=== PATIENT | male | born 1975 | race African-American/Black ===

== ENCOUNTER 2017-04-11 12:30 | Emergency (ER) | payer OTHER ==
[~2017-04-11] VITALS: Ht 172.7 cm; Wt 90.0 kg
[2017-04-11 12:35] VITALS: TEMP 37.2; Ht 172.7 cm; Wt 90.0 kg
[2017-04-11] MEDS ORDERED: LIDOCAINE/EPINEPHRINE 1% 20 ML VIAL INFIL ONE (13:00)
[2017-04-11] MEDS ORDERED: CEPH500C PO (13:18)
[2017-04-11] MEDS ORDERED: SULF800T23 PO (13:18)
--- NOTE | 2017-04-11 13:21 | EMERGENCY ROOM VISIT NOTE ---
ED Visit Note First contact with patient: 12:42 CHIEF COMPLAINT: Swelling, pain, and drainage from the left armpit HISTORY OF PRESENT ILLNESS: This 41-year-old male patient presents to the emergency department, ambulatory, approximately one week after they noticed a hard, red, tender area in the left armpit. It is slowly getting larger, more painful and tender. No fever, chills, or loss of appetite. There has been and able drainage from the area. The patient has been using the area to express drainage, and has not been very successful. There was no injury to the area preceding the infection. They rate the pain as severe and 10/10. Tetanus shot is up to date. They have tried expressing the pus without relief. The patient is not diabetic. The patient has no history of subcutaneous abscesses. REVIEW OF SYSTEMS: A 10 system review of systems was performed with positives and pertinent negatives listed in the history of present illness. All other systems were reviewed and are negative. ALLERGIES: None MEDICATIONS: None PMH: None SOCIAL HISTORY: Is lives locally with family. He denies drug, alcohol, tobacco use. PHYSICAL EXAM: Vital Signs: Reviewed Nurse's notes, vital signs stable. GENERAL : This is a 41 year old black male, no acute distress, non toxic in appearance, well-developed well-nourished. SKIN: There is an erythematous indurated area in the anterior left axilla which measures about 3 cm in diameter with induration radiating superiorly approximately 4 cm. It is fluctuant with pointing and limited drainage. There is a zone of inflammation around it but no lymphangitis. Capillary refill less than 2 seconds. MUSCULOSKELETAL: There is no limitation of the range of motion of the right arm. EMERGENCY DEPARTMENT COURSE: I examined the patient. Verbal consent was obtained to perform the procedure. After saline and Betadine cleansing and 3 mL of 1% lidocaine with epinephrine anesthesia, the abscess was incised with a number 11 scalpel blade. A small amount of serous and very small amount of purulent material was released with more expressed by pressure. A swab was obtained for culture. The abscess cavity was further probed with a needle bobtail driver, but due to the location, unable to express the deep pocket. The abscess cavity was then copiously irrigated with sterile saline under pressure. The area was then packed with bacitracin soaked packing. The area was cleaned with sterile saline and dressed with bacitracin and a bulky bandage. The patient tolerated the procedure well. I did stress the need for the patient to follow up outpatient with surgery for further evaluation and possible surgical removal of the abscess. The patient verbalizes understanding of these instructions. The patient was discharged home in stable condition. I attest that I have personally reviewed the patient's current medication list. Patient was found to have normal blood pressure on screening and does not require follow-up. DIFFERENTIAL DIAGNOSIS: Abscess, cellulitis, lymphangitis, folliculitis, malignancy, and others DIAGNOSIS: Abscess of the left axilla Current/Historical Medications Scheduled Cephalexin Monohydrate (Keflex), 500 MG PO QID Sulfa/Trimethoprim (Bactrim Ds 800MG/160MG), 1 TAB PO BID Vital Signs Date Time Temp Pulse Resp B/P (MAP) Pulse Ox O2 Delivery O2 Flow Rate FiO2 04/11/17 12:35 37.2 80 20 120/75 95 Room Air Departure Information Impression Primary Impression: Abscess of left axilla Dispostion Home / Self-Care Condition GOOD Prescriptions Sulfa/Trimethoprim (Bactrim Ds 800MG/160MG) Tab 1 TAB PO BID for 10 Days, #20 TAB Prov: Sary Quintero PA-C 04/11/17 Cephalexin Monohydrate (Keflex) 500 Mg Cap 500 MG PO QID for 10 Days, #40 CAP Prov: Sary Quintero PA-C 04/11/17 Referrals No Doctor, Assigned (PCP) Ángel Santana M.D. Patient Instructions ED Abscess IandD, My [facility] Additional Instructions You seen in the emergency department today for an abscess in the left axilla. This was drained, however due to the location, I did not feel comfortable expressing the deep pocket. Very minimal purulent fluid, but mostly serous drainage was obtained. The open wound was packed, but do encourage you to follow up with surgeon in the case that you need deeper I&D. Please keep the packing in place. Do not get the wound wet. Follow-up with the surgeon in 48 hours for recheck and further evaluation. As discussed, if the surgeon is unable to see you in this timeframe, return to the emergency department for recheck. A culture was sent to the lab for testing. These results will be available in approximately 48 hours. You were prescribed Keflex and Bactrim to be taken as prescribed. This is an antibiotic. All antibiotics have the potential to cause diarrhea. Stop this medication and contact a medical provider if you were to develop any significant adverse side effects including: wheezing, shortness of breath, passing out, vomiting, or a diffuse rash. Always take antibiotics as directed and COMPLETE the ENTIRE course regardless of the improvement of your symptoms. Return to the emergency department for worsening redness, purulent drainage, fever, chills, nausea, vomiting, or other concerning symptoms.
[2017-04-11 13:27] VITALS: BP 116/77; PULSE 74; O2SAT 99
--- NOTE | 2017-04-13 13:02 | Pharmacy Progress Note ---
ED Pharmacist Culture FollowUp Date of Service: Apr 13, 2017. Patient was sent home with a prescription for bactrim and keflex, which should cover the MSSA growing from the patient's deep wound culture. Confirmed with Sary Quintero PA-C that the full course of each antibiotic should be continued given the nature of the wound.
== END 2017-04-11 13:29 | disposition home or self-care (01) ==
LOC: C.EDB 12:32 → C.EDD 13:29
DX: L02.412 Cutaneous abscess of left axilla (principal)